=== PATIENT | male | born 1985 | race Caucasian/White ===

== ENCOUNTER 2022-10-25 08:07 | Emergency (ER) | payer OTHER, SELFPAY ==
[2022-10-25 08:22] VITALS: BP 117/95; PULSE 75; RESP 16; TEMP 36.4; O2SAT 100
--- NOTE | 2022-10-25 08:55 | ED.EYEPROB ---
HPI - Eye Problem General Chief complaint: Eye Problems Stated complaint: pink eye Time Seen by Provider: 10/25/22 08:50 Source: patient Mode of arrival: ambulatory Limitations: no limitations History of Present Illness HPI Narrative: 37-year-old male presented for complaint of bilateral eye redness and irritation worsening since yesterday. He states throughout the day yesterday he noted crust and drainage to the right eye. Reports tenderness. He states today he woke with both eyes crusted strep. Denies sick contacts. Not taking anything for symptoms. Denies vision changes, photophobia, headache, dizziness, or fever. chief complaint: eye pain Related Data Home Medications Medication Instructions Recorded Confirmed atorvastatin 10 mg tablet 10 mg PO HS 10/25/22 10/25/22 duloxetine 60 mg capsule,delayed 60 mg PO DAILY 10/25/22 10/25/22 release Allergies Allergy/AdvReac Type Severity Reaction Status Date / Time No Known Allergies Allergy Unverified 10/25/22 08:32 Review of Systems Review of Systems: CONSTITUTIONAL: Denies body aches, fever, chills EYES:Endorses swelling, redness and pain to eyes; denies FB sensation, photophobia, visual changes ENT: Denies rhinorrhea, congestion, sore throat, or otalgia. CARDIOVASCULAR: Denies chest pain, palpitations RESPIRATORY: Denies cough or dyspnea. GASTROINTESTINAL: Denies abdominal pain, nausea, vomiting, or diarrhea. SKIN: Denies rash, itching, or wounds. MUSCULOSKELETAL: Denies back pain, joint pain, or myalgia. NEUROLOGIC: Denies headache, numbness, tingling, or weakness. All systems reviewed & are unremarkable except as noted in HPI and below [facility] Past Medical History Medical History (Updated 10/25/22 @ 10:02 by Windy Blue APRN) HLD (hyperlipidemia) Comments At time of signature, I have reviewed and agree with nursing past medical, surgical, social and family history unless otherwise noted. Please see nursing chart for further information. There is no relevant family history pertinent to the presenting complaint Exam Narrative: GENERAL: Well-appearing HEAD: Normocephalic, atraumatic. EYES: bilateral severe conjunctival injection, Right upper eye lid swelling/redness. No active drainage. PERRLA, EOMI. Lid eversion shows no foreign body ENT: Mucous membranes pink and moist. No rhinorrhea. TMs normal bilaterally. Throat normal. Uvula midline. CHEST: Clear to auscultation. HEART: Regular rate and rhythm. ABDOMEN: Soft, nontender, nondistended SKIN: Warm, dry, no rash. Normal skin turgor. NEURO: No focal deficits. Alert and oriented x3 PSYCH: Normal affect. Course Course Emergency Course: Patient is aware of diagnosis, understands and agrees to treatment plan. Anticipatory guidance given. Patient agrees to follow-up as directed and is aware of reasons to seek care at the emergency department. Portions of this record may have been created with voice recognition software Level of Care: Express Care Visit Vital Signs Vital signs: Vital Signs Temperature 97.5 F L 10/25/22 08:22 Pulse Rate 75 10/25/22 08:22 Respiratory Rate 16 10/25/22 08:22 Blood Pressure 117/95 H 10/25/22 08:22 Pulse Oximetry 100 10/25/22 08:22 Temperature 97.5 F L 10/25/22 08:22 Pulse Rate 75 10/25/22 08:22 Respiratory Rate 16 10/25/22 08:22 Blood Pressure 117/95 H 10/25/22 08:22 Pulse Oximetry 100 10/25/22 08:22 MDM - Eye Problem MDM Narrative Medical decision making narrative: Discussed physical exam findings c/w conjunctivitis. Advised supportive measures and signs/symptoms to go to the ER. Pt is appropriate for outpt treatment and f/u. Differential Diagnosis Differential diagnosis: Likely corneal abrasion, conjunctivitis, acute iritis and other Discharge Plan Discharge Clinical Impression: Bacterial conjunctivitis Patient Disposition: Home, Self-Care Condition: Stable Instructions: An
== END 2022-10-25 09:04 | disposition home or self-care (01) ==
PROVIDERS: Emergency Provider Nurse Practitioner Family
DX: H10.9 Unspecified conjunctivitis (principal); E78.5 Hyperlipidemia, unspecified
CPT/HCPCS: 99213; G0463